=== PATIENT | female | born 1955 | race Caucasian/White ===

== ENCOUNTER 2021-06-29 16:44 | Inpatient (IN) | payer BC ==
[2021-06-29 17:45] LABS: #Basophils 0.1 thou/uL (0.0-0.2); #Eosinphils 0.2 thou/uL (0.0-0.7); #Lymphocytes 2.9 thou/uL (1.20-3.40); #Monocytes 0.5 thou/uL (0.11-0.59); #Neutrophils 4.8 thou/uL (1.40-6.50); %Basophils 0.8 % (0.0-1.0); %Eosinophils 1.9 % (0.0-10.0); %Lymphocytes 34.5 % (21.0-51.0); %Monocytes 5.5 % (0.0-10.0); %Neutrophils 57.3 % (42.0-75.0); Hemoglobin 14.6 g/dL (12.0-16.0); Mean Corpuscular HGB CONC 33.9 g/dL (32.0-36.0); Mean Corpuscular Hemoglobin 30.7 pg (27.0-31.0); Mean Corpuscular Volume 90.5 fL (78.0-98.0); Mean Platelet Volume 6.3 fL (7.4-10.4); Platelet Count 241 thou/uL (130-400); RBC Distribution Width 12.2 % (11.5-14.5); Red Blood Cell (RBC) Count 4.75 mill/uL (4.20-5.40); White Blood Cell (WBC) Count 8.3 thou/uL (4.8-10.8)
[2021-06-29 18:11] LABS: ALT (SGPT) 31 U/L (8-55); AST (SGOT) 28 U/L (5-34); Albumin 4.4 g/dL (3.4-4.8); Alkaline Phosphatase 96 U/L (40-110); Anion Gap 12 mmol/L (10-20); BUN (Urea Nitrogen) 14 mg/dL (9.8-20.1); Bilirubin, Total 0.4 mg/dL (0.2-1.2); Calc. Creatinine Clearance 0 mL/min (70-130); Calcium 9.7 mg/dL (7.8-10.44); Carbon Dioxide 28 mmol/L (23-31); Chloride 103 mmol/L (98-107); Globulin 3.4 g/dL (2.4-3.5); Glucose 128 mg/dL (80-115); Lipase 33 U/L (8-78); Magnesium 2.1 mg/dL (1.6-2.6); Potassium 4.4 mmol/L (3.5-5.1); Protein, Total 7.8 g/dL (5.8-8.1); Sodium 139 mmol/L (136-145)
[2021-06-29 18:32] LABS: CKMB 1.7 ng/mL (0-6.6)
[2021-06-29] MEDS ORDERED: Aspirin Chewable 81 MG TAB ONE (21:20)
[2021-06-29 21:34] LABS: Troponin I 0.215 ng/mL (< 0.028)
[2021-06-29] MEDS ORDERED: Acetaminophen 650 MG Suppository PR PRN (23:27)
[2021-06-29] MEDS ORDERED: Ondansetron ODT 4 MG TAB PO PRN (23:27)
[2021-06-29] MEDS ORDERED: Ondansetron PF 4 MG/2 ML Vial IVP PRN (23:27)
[2021-06-29] MEDS ORDERED: Acetaminophen 325 MG TAB PO PRN (23:27)
[2021-06-29] MEDS ORDERED: Nitroglycerin 0.4 MG TAB (25 Tab Bottle) SL PRN (23:34)
[2021-06-29] MEDS ORDERED: Morphine 4 MG/ML VIAL SLOW IVP PRN (23:35)
[2021-06-29] MEDS ORDERED: Enoxaparin Sodium 100 MG/ML SYRINGE SC SCH (23:59)
[2021-06-30 00:14] LABS: Troponin I 0.215 ng/mL (< 0.028)
[2021-06-30 01:44] VITALS: BMI 37.5
[2021-06-30 05:34] LABS: #Basophils 0.1 thou/uL (0.0-0.2); #Eosinphils 0.2 thou/uL (0.0-0.7); #Lymphocytes 3.5 thou/uL (1.20-3.40); #Monocytes 0.4 thou/uL (0.11-0.59); #Neutrophils 3.6 thou/uL (1.40-6.50); %Basophils 0.9 % (0.0-1.0); %Eosinophils 2.9 % (0.0-10.0); %Lymphocytes 45.1 % (21.0-51.0); %Monocytes 4.7 % (0.0-10.0); %Neutrophils 46.4 % (42.0-75.0); Hemoglobin 14.1 g/dL (12.0-16.0); Mean Corpuscular HGB CONC 33.5 g/dL (32.0-36.0); Mean Corpuscular Hemoglobin 30.7 pg (27.0-31.0); Mean Corpuscular Volume 91.7 fL (78.0-98.0); Mean Platelet Volume 6.6 fL (7.4-10.4); Platelet Count 232 thou/uL (130-400); RBC Distribution Width 12.2 % (11.5-14.5); White Blood Cell (WBC) Count 7.7 thou/uL (4.8-10.8)
[2021-06-30 05:49] LABS: Hemoglobin A1c 6.3 % (4.0-6.0)
[2021-06-30 05:52] LABS: Anion Gap 12 mmol/L (10-20); BUN (Urea Nitrogen) 13 mg/dL (9.8-20.1); Calc. Creatinine Clearance 116 mL/min (70-130); Calcium 9.5 mg/dL (7.8-10.44); Carbon Dioxide 28 mmol/L (23-31); Chloride 103 mmol/L (98-107); Glucose 112 mg/dL (80-115); Potassium 3.9 mmol/L (3.5-5.1); Sodium 139 mmol/L (136-145)
[2021-06-30] MEDS ORDERED: FLU VACC QS2021-22(6MOS UP)/PF 60 MCG/0.5 ML SYRINGE IM ONE (09:00)
[2021-06-30] MEDS ORDERED: Enoxaparin Sodium 40 MG/0.4 ML SYRINGE SC SCH (09:00)
[2021-06-30] MEDS ORDERED: Enoxaparin Sodium 100 MG/ML SYRINGE SC SCH ×2 (09:00→17:00)
[2021-06-30] MEDS ORDERED: Communication Order-Pharmacy FS SCH (09:30)
[2021-06-30 11:00] LABS: Cardiac Risk 6.4 (Less than 4.5)
[2021-06-30] MEDS ORDERED: Verapamil 5 MG/2 ML VIAL ONE (11:00)
[2021-06-30] MEDS ORDERED: Heparin 10,000 UNITS/ 10 ML VIAL ONE (11:00)
[2021-06-30] MEDS ORDERED: Lidocaine 1% (PF) 30 ML VIAL ONE (11:01)
[2021-06-30] MEDS ORDERED: Nitroglycerin 100MG/250ML BOT 250 ML ONE (11:01)
[2021-06-30] MEDS ORDERED: Heparin 25,000 units/D5W 0 ML ONE (11:06)
[2021-06-30] MEDS ORDERED: Norepinephrine 4 MG/4 ML VIAL ONE (11:06)
[2021-06-30] MEDS ORDERED: Midazolam HCl 2 mg/2 ml Vial ONE (12:00)
[2021-06-30] MEDS ORDERED: Fentanyl 100 MCG/2 ML VIAL ONE (12:00)
[2021-06-30] MEDS ORDERED: Iopamidol 370 76% 100 ML VIAL ONE (12:18)
[2021-06-30] MEDS ORDERED: Acetaminophen/Codeine 30-300mg Tablet PO PRN ×2 (13:30)
[2021-06-30] MEDS ORDERED: Sodium Chloride 0.9% 200 ML IV PRN (13:30)
[2021-06-30] MEDS ORDERED: Nitroglycerin 0.4 MG TAB (25 Tab Bottle) SL PRN (13:30)
[2021-06-30] MEDS ORDERED: Diazepam 5 MG TAB PO PRN (14:46)
[2021-06-30] MEDS ORDERED: Communication Order-Pharmacy FS PRN (14:46)
[2021-06-30 15:10] LABS: SARS-CoV-2 PCR by NAA Not Detected (NotDetected)
[2021-06-30] MEDS: Carvedilol 3.125 MG TAB PO SCH (17:35)
[2021-06-30] MEDS: Aspirin 81 mg Enteric Coated Tablet PO SCH (17:36)
[2021-06-30] MEDS: Atorvastatin Calcium 40 MG TAB PO SCH (20:56)
[2021-07-01] MEDS: Enoxaparin Sodium 100 MG/ML SYRINGE SC SCH ×2 (09:08→19:47)
[2021-07-01] MEDS: Aspirin 81 mg Enteric Coated Tablet PO SCH (09:09)
[2021-07-01] MEDS: Carvedilol 3.125 MG TAB PO SCH ×2 (09:09→18:26)
[2021-07-01] MEDS: Atorvastatin Calcium 40 MG TAB PO SCH (19:42)
[2021-07-02] MEDS: Carvedilol 3.125 MG TAB PO SCH (05:05)
[2021-07-02] MEDS ORDERED: Albumin 5% 500 ML ONE (06:24)
[2021-07-02] MEDS ORDERED: Bupivacaine PF 0.5% 30 ML VIAL ONE (06:24)
[2021-07-02] MEDS ORDERED: EPINEPHrine 1 MG/ML AMP ONE (06:24)
[2021-07-02] MEDS ORDERED: Dexamethasone 4 mg/ml Vial ONE (06:24)
[2021-07-02] MEDS ORDERED: ceFAZolin 2 GM/DEX 5% 100 ML BAG ONE (06:32)
[2021-07-02] MEDS ORDERED: Midazolam HCl 5 mg/5 ml Vial ONE (06:49)
[2021-07-02] MEDS ORDERED: Fentanyl 250 MCG/5 ML VIAL ONE (06:49)
[2021-07-02] MEDS ORDERED: Dexmedetomidine 200 MCG/2 ML VIAL ONE (06:49)
[2021-07-02] MEDS ORDERED: Heparin 10,000 UNITS/1 ML VIAL 30,000 UNITS in Sodium Chloride 0.9% 1,000 ML FS SCH (07:00)
[2021-07-02] MEDS ORDERED: PHENYLEPHRINE-NS 100 MCG/ML 10 ML SYRINGE ONE (07:11)
[2021-07-02] MEDS ORDERED: ceFAZolin 2 GM/Dextrose 50 ML 2 GM in Premix Bag 1 BAG IVPB SCH (07:30)
[2021-07-02] MEDS ORDERED: Aminocaproic Acid 5 GM/20 ML VIAL ONE (07:39)
[2021-07-02] MEDS ORDERED: Ondansetron PF 4 MG/2 ML Vial ONE (07:39)
[2021-07-02] MEDS ORDERED: Magnesium Sulfate 1 GM/2 ML VIAL ONE (07:39)
[2021-07-02] MEDS ORDERED: Cardioplegic Soln 1,000 ML BAG ONE (07:39)
[2021-07-02] MEDS ORDERED: Potassium Chloride 60 MEQ/30 ML VIAL ONE (07:39)
[2021-07-02] MEDS ORDERED: Vecuronium 10 MG VIAL ONE (07:39)
[2021-07-02] MEDS ORDERED: Lidocaine 2% PF 100 mg/5 ml Syringe ONE (07:39)
[2021-07-02] MEDS ORDERED: Glycopyrrolate 0.2 MG/ML 5 ML SYRINGE ONE (07:39)
[2021-07-02] MEDS ORDERED: Sodium Bicarb 50 MEQ/50 ML Abboject 8.4% SYRINGE ONE (07:39)
[2021-07-02] MEDS ORDERED: Norepinephrine 4 MG/4 ML VIAL ONE (07:39)
[2021-07-02] MEDS ORDERED: Papaverine 60 MG/2 ML VIAL ONE (07:39)
[2021-07-02] MEDS ORDERED: Ketorolac Tromethamine 30 MG/ML VIAL ONE (07:39)
[2021-07-02] MEDS ORDERED: Heparin 5,000 UNITS/ML VIAL ONE (07:39)
[2021-07-02] MEDS ORDERED: Lidocaine 1% PF 5 ML VIAL ONE (07:39)
[2021-07-02] MEDS ORDERED: Nitroglycerin 50 MG/250 ML BOT ONE (07:39)
[2021-07-02] MEDS ORDERED: Heparin 30,000 units/30 ml VIAL ONE (07:39)
[2021-07-02] MEDS ORDERED: PROPOFOL 200 MG/20 ML VIAL ONE (07:39)
[2021-07-02] MEDS ORDERED: Thrombin 5000 UNITS/5 ML VIAL ONE (07:39)
[2021-07-02] MEDS ORDERED: Dexamethasone 20 MG/5 ML VIAL ONE (07:39)
[2021-07-02] MEDS ORDERED: Calcium Chloride 1 GM/10 ML Abboject SYRINGE ONE (07:39)
[2021-07-02] MEDS ORDERED: ePHEDrine 50 MG/ML VIAL ONE (07:39)
[2021-07-02] MEDS ORDERED: Protamine Sulfate 250 MG/25 ML VIAL ONE (07:39)
[2021-07-02] MEDS ORDERED: Insulin Regular 300 UNITS/3 ML VIAL ONE (08:55)
[2021-07-02] MEDS ORDERED: Milrinone 10 MG/10 ML VIAL ONE ×2 (08:55→09:08)
[2021-07-02] MEDS ORDERED: traMADol HCl 50 MG TAB PO PRN ×2 (11:02)
[2021-07-02] MEDS ORDERED: Nitroglycerin 50 MG/250 ML BOT 250 ML IVPB PRN (11:02)
[2021-07-02] MEDS ORDERED: Ondansetron PF 4 MG/2 ML Vial IVP PRN (11:02)
[2021-07-02] MEDS ORDERED: Mag-Al 1200 mg/1200 mg/30 ML UDCUP PO PRN (11:02)
[2021-07-02] MEDS ORDERED: Phenylephrine 40 MG in Sodium Chloride 0.9% 250 ML 250 ML IVPB PRN ×2 (11:02→11:46)
[2021-07-02] MEDS ORDERED: Guaifenesin DM 100-10/5 ML UDCUP PO PRN (11:02)
[2021-07-02] MEDS ORDERED: Acetaminophen 325 MG TAB PO PRN (11:02)
[2021-07-02] MEDS ORDERED: Potassium Chloride 20 MEQ/100 ML PREMIX BAG IVPB PRN (11:02)
[2021-07-02] MEDS ORDERED: Morphine 2 MG/ML VIAL SLOW IVP PRN (11:02)
[2021-07-02] MEDS ORDERED: Bisacodyl 5 MG TAB PO PRN (11:02)
[2021-07-02] MEDS ORDERED: Fentanyl 100 MCG/2 ML VIAL SLOW IVP PRN ×2 (11:02)
[2021-07-02] MEDS ORDERED: D5 1/2 NS w/20 mEq KCL 1,000 ML IV SCH (11:02)
[2021-07-02] MEDS ORDERED: Magnesium 2 GM/50 ML 1 GM in Premix Bag 1 BAG IVPB SCH (11:02)
[2021-07-02] MEDS ORDERED: Bisacodyl 10 MG SUPP PR PRN (11:02)
[2021-07-02] MEDS ORDERED: Hetastarch 6% 500 ML 500 ML IVPB PRN (11:02)
[2021-07-02] MEDS ORDERED: niCARdipine 25 MG in Sodium Chloride 0.9% 250 ML 250 ML IVPB PRN (11:02)
[2021-07-02 11:09] LABS: #Eosinphils 0.1 thou/uL (0.0-0.7); #Lymphocytes 1.3 thou/uL (1.20-3.40); #Monocytes 0.5 thou/uL (0.11-0.59); #Neutrophils 9.8 thou/uL (1.40-6.50); %Basophils 0.1 % (0.0-1.0); %Eosinophils 0.9 % (0.0-10.0); %Lymphocytes 11.4 % (21.0-51.0); %Neutrophils 83.6 % (42.0-75.0); Hemoglobin 11.6 g/dL (12.0-16.0); Mean Corpuscular HGB CONC 33.2 g/dL (32.0-36.0); Mean Corpuscular Hemoglobin 30.7 pg (27.0-31.0); Mean Corpuscular Volume 92.4 fL (78.0-98.0); Mean Platelet Volume 6.3 fL (7.4-10.4); Platelet Count 159 thou/uL (130-400); RBC Distribution Width 12.1 % (11.5-14.5); Red Blood Cell (RBC) Count 3.79 mill/uL (4.20-5.40); White Blood Cell (WBC) Count 11.8 thou/uL (4.8-10.8)
[2021-07-02 11:13] LABS: Actual Bicarbonate (HCO3a) 25.5 mEq/L (22-28); Base Excess (BEa) -0.8 mEq/L (-2.0 to +3.0); CO2 Tension 49.2 mmHg (35.0-45.0); Calcium, Ionized (arterial) 1.11 mmol/L (1.12-1.30); Carboxyhemoglobin (COHb) 0.5 gm% (0.0-3.0); Hemoglobin (Hb) 12.3 g/dL (12.0-16.0); O2 Tension (PaO2), arterial 97.6 mmHg (> 80.0); Potassium - ABG Lab 3.98 mmol/L (3.70-5.30); pH, Arterial 7.33 (7.35-7.45)
[2021-07-02 11:14] LABS: Puncture Site Arterial Line
[2021-07-02] MEDS ORDERED: Dextrose 5% in Water 1,000 ML IV PRN (11:15)
[2021-07-02] MEDS ORDERED: Lantus 1000 UNITS/10 ML VIAL SC PRN (11:15)
[2021-07-02] MEDS ORDERED: Dextrose 50% Abboject 50 ML SYRINGE SLOW IVP PRN (11:15)
[2021-07-02] MEDS ORDERED: HUMULIN R 100 UNITS in Sodium Chloride 0.9% 100 ML IVPB SCH (11:15)
[2021-07-02 11:28] LABS: INR-International Normal Ratio 1.3; PTT 37.7 sec (22.9-36.1); Prothrombin Time 16.8 sec (12.0-14.7)
[2021-07-02 11:28] LABS: Anion Gap 10 mmol/L (10-20); BUN (Urea Nitrogen) 8 mg/dL (9.8-20.1); Calc. Creatinine Clearance 124 mL/min (70-130); Carbon Dioxide 23 mmol/L (23-31); Chloride 111 mmol/L (98-107); Glucose 154 mg/dL (80-115); Sodium 140 mmol/L (136-145)
[2021-07-02] MEDS: Insulin Regular 300 UNITS/3 ML VIAL SC PRN ×4 (11:38→23:59)
[2021-07-02] MEDS: Ketorolac Tromethamine 30 MG/ML VIAL IVP SCH ×2 (12:07→17:55)
[2021-07-02] MEDS: ceFAZolin Sodium/D5W 2 GM in Premix Bag 1 BAG IVPB SCH ×2 (14:07→21:00)
[2021-07-02 17:24] LABS: Potassium 4.8 mmol/L (3.5-5.1)
[2021-07-02] MEDS: Atorvastatin Calcium 40 MG TAB PO SCH (20:18)
[2021-07-02] MEDS ORDERED: Famotidine/PF 20 mg/2ml Vial SLOW IVP SCH (21:00)
[2021-07-03 04:22] LABS: #Lymphocytes 1.1 thou/uL (1.20-3.40); #Monocytes 0.5 thou/uL (0.11-0.59); #Neutrophils 7.8 thou/uL (1.40-6.50); %Eosinophils 0.1 % (0.0-10.0); %Lymphocytes 11.7 % (21.0-51.0); %Monocytes 5.2 % (0.0-10.0); Hemoglobin 10.3 g/dL (12.0-16.0); Mean Corpuscular HGB CONC 34.2 g/dL (32.0-36.0); Mean Corpuscular Hemoglobin 31.5 pg (27.0-31.0); Platelet Count 171 thou/uL (130-400); RBC Distribution Width 12.1 % (11.5-14.5); Red Blood Cell (RBC) Count 3.27 mill/uL (4.20-5.40); White Blood Cell (WBC) Count 9.4 thou/uL (4.8-10.8)
[2021-07-03] MEDS: Insulin Regular 300 UNITS/3 ML VIAL SC PRN (04:23)
[2021-07-03 04:35] LABS: Anion Gap 12 mmol/L (10-20); BUN (Urea Nitrogen) 8 mg/dL (9.8-20.1); Calc. Creatinine Clearance 123 mL/min (70-130); Calcium 8.2 mg/dL (7.8-10.44); Carbon Dioxide 23 mmol/L (23-31); Chloride 108 mmol/L (98-107); Glucose 129 mg/dL (80-115); Potassium 4.5 mmol/L (3.5-5.1); Sodium 138 mmol/L (136-145)
[2021-07-03] MEDS: Ketorolac Tromethamine 30 MG/ML VIAL IVP SCH ×5 (05:45→23:22)
[2021-07-03] MEDS: ceFAZolin Sodium/D5W 2 GM in Premix Bag 1 BAG IVPB SCH (05:46)
[2021-07-03] MEDS ORDERED: Nitroglycerin 0.4 MG TAB (25 Tab Bottle) SL PRN (06:39)
[2021-07-03] MEDS: Famotidine 20 MG TAB PO SCH ×2 (09:26→22:14)
[2021-07-03] MEDS: Aspirin 325 MG TAB PO SCH (09:26)
[2021-07-03] MEDS: Magnesium 2 GM/50 ML 1 GM in Premix Bag 1 BAG IVPB SCH (09:26)
[2021-07-03] MEDS: Polyethylene Glycol 3350 17 GM Packet PO SCH (09:27)
[2021-07-03] MEDS: Atorvastatin Calcium 40 MG TAB PO SCH (22:14)
[2021-07-03] MEDS: Melatonin 3 MG TAB PO PRN (22:14)
[2021-07-04] MEDS: Ketorolac Tromethamine 30 MG/ML VIAL IVP SCH ×3 (05:37→17:42)
[2021-07-04 05:39] LABS: #Eosinphils 0.1 thou/uL (0.0-0.7); #Lymphocytes 1.8 thou/uL (1.20-3.40); #Monocytes 0.6 thou/uL (0.11-0.59); #Neutrophils 6.5 thou/uL (1.40-6.50); %Basophils 0.3 % (0.0-1.0); %Eosinophils 1.3 % (0.0-10.0); %Neutrophils 71.4 % (42.0-75.0); Hemoglobin 10.2 g/dL (12.0-16.0); Mean Corpuscular HGB CONC 33.3 g/dL (32.0-36.0); Mean Corpuscular Hemoglobin 31.1 pg (27.0-31.0); Mean Corpuscular Volume 93.3 fL (78.0-98.0); Mean Platelet Volume 6.8 fL (7.4-10.4); Platelet Count 165 thou/uL (130-400); RBC Distribution Width 12.3 % (11.5-14.5); Red Blood Cell (RBC) Count 3.27 mill/uL (4.20-5.40); White Blood Cell (WBC) Count 9.1 thou/uL (4.8-10.8)
[2021-07-04 05:57] LABS: Anion Gap 11 mmol/L (10-20); BUN (Urea Nitrogen) 18 mg/dL (9.8-20.1); Calc. Creatinine Clearance 112 mL/min (70-130); Calcium 8.6 mg/dL (7.8-10.44); Carbon Dioxide 27 mmol/L (23-31); Chloride 105 mmol/L (98-107); Glucose 134 mg/dL (80-115); Potassium 4.1 mmol/L (3.5-5.1); Sodium 139 mmol/L (136-145)
[2021-07-04] MEDS: Magnesium 2 GM/50 ML 1 GM in Premix Bag 1 BAG IVPB SCH (09:22)
[2021-07-04] MEDS: Aspirin 325 MG TAB PO SCH (09:22)
[2021-07-04] MEDS: Famotidine 20 MG TAB PO SCH ×2 (09:22→20:28)
[2021-07-04] MEDS: Polyethylene Glycol 3350 17 GM Packet PO SCH (09:23)
[2021-07-04] MEDS: Carvedilol 3.125 MG TAB PO SCH ×2 (09:26→17:42)
[2021-07-04] MEDS: Melatonin 3 MG TAB PO PRN (20:28)
[2021-07-04] MEDS: Atorvastatin Calcium 40 MG TAB PO SCH (20:28)
[2021-07-05] MEDS: Ketorolac Tromethamine 30 MG/ML VIAL IVP SCH ×3 (01:01→12:15)
[2021-07-05] MEDS: Polyethylene Glycol 3350 17 GM Packet PO SCH (10:03)
[2021-07-05] MEDS: Aspirin 325 MG TAB PO SCH (10:03)
[2021-07-05] MEDS: Famotidine 20 MG TAB PO SCH (10:03)
[2021-07-05] MEDS: Carvedilol 3.125 MG TAB PO SCH (10:03)
[2021-07-05 14:26] VITALS: BP 120/59; TEMP 98.3
[2021-07-06 08:59] LABS: Actual Bicarbonate (HCO3a) 23.6 mEq/L (22-28); Analyzer IN Cardio OR; Base Excess (BEa) -1.9 mEq/L (-2.0 to +3.0); CO2 Tension 43.1 mmHg (35.0-45.0); Calcium, Ionized (arterial) 1.11 mmol/L (1.12-1.30); Hemoglobin (Hb) 12.7 g/dL (12.0-16.0); O2 Tension (PaO2), arterial 201.4 mmHg (> 80.0); Potassium - ABG Lab 4.28 mmol/L (3.70-5.30); pH, Arterial 7.36 (7.35-7.45)
[2021-07-06 08:59] LABS: Actual Bicarbonate (HCO3a) 25.8 mEq/L (22-28); Analyzer IN Cardio OR; Base Excess (BEa) -0.4 mEq/L (-2.0 to +3.0); CO2 Tension 48.9 mmHg (35.0-45.0); Calcium, Ionized (arterial) 1.12 mmol/L (1.12-1.30); Carboxyhemoglobin (COHb) 1.1 gm% (0.0-3.0); Hemoglobin (Hb) 13.6 g/dL (12.0-16.0); O2 Tension (PaO2), arterial 411.4 mmHg (> 80.0); Potassium - ABG Lab 3.84 mmol/L (3.70-5.30); pH, Arterial 7.34 (7.35-7.45)
[2021-07-06 09:00] LABS: Actual Bicarbonate (HCO3a) 26.3 mEq/L (22-28); Analyzer IN Cardio OR; Base Excess (BEa) 0.9 mEq/L (-2.0 to +3.0); CO2 Tension 45.3 mmHg (35.0-45.0); Calcium, Ionized (arterial) 0.98 mmol/L (1.12-1.30); Carboxyhemoglobin (COHb) 0.4 gm% (0.0-3.0); O2 Tension (PaO2), arterial 332.4 mmHg (> 80.0); Potassium - ABG Lab 4.44 mmol/L (3.70-5.30); pH, Arterial 7.38 (7.35-7.45)
[2021-07-06 09:00] LABS: Actual Bicarbonate (HCO3a) 26.6 mEq/L (22-28); Analyzer IN Cardio OR; Base Excess (BEa) 2.7 mEq/L (-2.0 to +3.0); CO2 Tension 38.3 mmHg (35.0-45.0); Calcium, Ionized (arterial) 0.87 mmol/L (1.12-1.30); Carboxyhemoglobin (COHb) 0.4 gm% (0.0-3.0); Hemoglobin (Hb) 9.6 g/dL (12.0-16.0); O2 Tension (PaO2), arterial 335.1 mmHg (> 80.0); Potassium - ABG Lab 4.38 mmol/L (3.70-5.30); pH, Arterial 7.46 (7.35-7.45)
[2021-07-06 09:01] LABS: Actual Bicarbonate (HCO3a) 24.8 mEq/L (22-28); Analyzer IN Cardio OR; Base Excess (BEa) 0.2 mEq/L (-2.0 to +3.0); CO2 Tension 39.9 mmHg (35.0-45.0); Calcium, Ionized (arterial) 1.13 mmol/L (1.12-1.30); Carboxyhemoglobin (COHb) 0.3 gm% (0.0-3.0); Hemoglobin (Hb) 10.3 g/dL (12.0-16.0); O2 Tension (PaO2), arterial 311.1 mmHg (> 80.0); Potassium - ABG Lab 4.27 mmol/L (3.70-5.30); pH, Arterial 7.41 (7.35-7.45)
[2021-07-06 09:01] LABS: Actual Bicarbonate (HCO3a) 24.6 mEq/L (22-28); Analyzer IN Cardio OR; Base Excess (BEa) -0.2 mEq/L (-2.0 to +3.0); CO2 Tension 40.5 mmHg (35.0-45.0); Calcium, Ionized (arterial) 1.13 mmol/L (1.12-1.30); Carboxyhemoglobin (COHb) 0.7 gm% (0.0-3.0); Hemoglobin (Hb) 11.8 g/dL (12.0-16.0); O2 Tension (PaO2), arterial 326.7 mmHg (> 80.0)
[2021-07-06 09:01] LABS: Puncture Site Arterial Line
[2021-07-06 09:02] LABS: Puncture Site Arterial Line
[2021-07-06 09:02] LABS: Puncture Site Arterial Line
[2021-07-06 09:03] LABS: Puncture Site Arterial Line
[2021-07-06 09:03] LABS: Puncture Site Arterial Line
[2021-07-06 09:04] LABS: Puncture Site Arterial Line
== END 2021-07-05 14:20 | disposition home or self-care (01) | DRG 234 ==
LOC: ERS 16:44 → NEURO 19:07 → OBSVTOIN 06-30 16:16 → CCU 07-02 09:56 → 2NO 07-03 08:28
PROVIDERS: ADMIT Internal Medicine; ATTEND Internal Medicine
PROC: 4A023N7 Measurement of Cardiac Sampling and Pressure, Left Heart, Percutaneous Approach (ICD-10-PCS; 2021-06-30)
PROC: B2111ZZ Fluoroscopy of Multiple Coronary Arteries using Low Osmolar Contrast (ICD-10-PCS; 2021-06-30)
PROC: B2151ZZ Fluoroscopy of Left Heart using Low Osmolar Contrast (ICD-10-PCS; 2021-06-30)
PROC: 021109W Bypass Coronary Artery, Two Arteries from Aorta with Autologous Venous Tissue, Open Approach (ICD-10-PCS; principal; 2021-07-02)
PROC: 02100Z9 Bypass Coronary Artery, One Artery from Left Internal Mammary, Open Approach (ICD-10-PCS; 2021-07-02)
PROC: 06BQ4ZZ Excision of Left Saphenous Vein, Percutaneous Endoscopic Approach (ICD-10-PCS; 2021-07-02)
PROC: 5A1221Z Performance of Cardiac Output, Continuous (ICD-10-PCS; 2021-07-02)
DX: I21.4 Non-ST elevation (NSTEMI) myocardial infarction (principal); I25.10 Atherosclerotic heart disease of native coronary artery without angina pectoris; Z20.822 Contact with and (suspected) exposure to COVID-19; Z23 Encounter for immunization; I10 Essential (primary) hypertension; E78.5 Hyperlipidemia, unspecified; E78.00 Pure hypercholesterolemia, unspecified; I44.7 Left bundle-branch block, unspecified; E66.9 Obesity, unspecified; Z68.38 Body mass index [BMI] 38.0-38.9, adult; Z90.89 Acquired absence of other organs; Z78.1 Physical restraint status; Z87.891 Personal history of nicotine dependence
CPT/HCPCS: 36415; 36416; 36430; 71045; 80048; 80053; 80061; 82553; 82805; 83036; 83690; 83735; 84484; 85025; 85610; 85730; 86850; 86900; 86901; 90471; 90686; 90732; 93005; 93010; 93458; 93798; 94002; 94150; 94640; 94760; 96372; 97139; 99152; 99153; C1776; G0008; G0009; G0378; J0171; J1100; J1642; J1644; J1650; J1815; J1885; J2001; J2250; J2260; J2370; J2405; J2440; J2704; J2720; J3010; J3370; J3475; J3480; J3490; J7050; J7620; P9045; Q9967; S0017; S0020; S0028; U0003; U0005

== ENCOUNTER 2021-07-13 10:58 | Outpatient (CLI) | payer BC | END 2021-07-13 10:59 | disposition home or self-care (01) | LOC: BICRAD 10:58 | PROVIDERS: ATTEND Physician Assistant | DX: R05.9 Cough, unspecified (principal); I51.7 Cardiomegaly; J90 Pleural effusion, not elsewhere classified; J81.1 Chronic pulmonary edema; Z98.890 Other specified postprocedural states | CPT/HCPCS: 71046 ==

== ENCOUNTER 2021-08-13 12:49 | Outpatient (CLI) | payer BC | END 2021-08-13 12:50 | disposition home or self-care (01) | LOC: BICMAMMO 12:49 | PROVIDERS: ATTEND Physician Assistant | DX: Z13.820 Encounter for screening for osteoporosis (principal) | CPT/HCPCS: 77080 ==

== ENCOUNTER 2022-02-25 08:09 | Outpatient (CLI) | payer BC | END 2022-02-25 08:10 | disposition home or self-care (01) | LOC: CTENTCT 08:09 → RAD 08:10 | PROVIDERS: ATTEND Nurse Practitioner Family | DX: R06.02 Shortness of breath (principal) | CPT/HCPCS: 71046 ==

== ENCOUNTER 2022-05-11 15:21 | Outpatient (CLI) | payer BC | END 2022-05-11 15:22 | disposition home or self-care (01) | LOC: BICMAMMO 15:21 | PROVIDERS: ATTEND Physician Assistant | DX: Z12.31 Encounter for screening mammogram for malignant neoplasm of breast (principal) | CPT/HCPCS: 77063; 77067 ==

== ENCOUNTER 2022-10-21 15:17 | Emergency (ER) | payer BC ==
[2022-10-21 16:17] LABS: #Lymphocytes 1.1 thou/uL (1.20-3.40); #Monocytes 0.2 thou/uL (0.11-0.59); #Neutrophils 8.4 thou/uL (1.40-6.50); %Basophils 0.4 % (0.0-1.0); %Eosinophils 0.4 % (0.0-10.0); %Lymphocytes 10.8 % (21.0-51.0); %Monocytes 2.4 % (0.0-10.0); Hemoglobin 12.8 g/dL (12.0-16.0); Mean Corpuscular HGB CONC 33.9 g/dL (32.0-36.0); Mean Corpuscular Hemoglobin 30.6 pg (27.0-31.0); Mean Corpuscular Volume 90.4 fl (78.0-98.0); Mean Platelet Volume 6.7 fL (7.4-10.4); Platelet Count 249 10x3/uL (130-400); RBC Distribution Width 12.1 % (11.5-14.5); Red Blood Cell (RBC) Count 4.18 mill/uL (4.20-5.40); White Blood Cell (WBC) Count 9.7 10x3/uL (4.8-10.8)
[2022-10-21 16:27] LABS: Hemoglobin A1c 7.9 % (4.0-6.0)
[2022-10-21 16:37] LABS: Magnesium 1.9 mg/dL (1.6-2.6)
[2022-10-21 16:39] LABS: ALT (SGPT) 17 U/L (8-55); AST (SGOT) 17 U/L (5-34); Albumin 4.1 g/dL (3.4-4.8); Alkaline Phosphatase 118 U/L (40-110); Anion Gap 19 mmol/L (10-20); BUN (Urea Nitrogen) 17 mg/dL (9.8-20.1); Bilirubin, Total 0.4 mg/dL (0.2-1.2); Calc. Creatinine Clearance 0 mL/min (70-130); Calcium 9.4 mg/dL (7.8-10.44); Carbon Dioxide 23 mmol/L (23-31); Chloride 100 mmol/L (98-107); Estimated GFR 65; Globulin 3.5 g/dL (2.4-3.5); Phosphorus 3.7 mg/dL (2.3-4.7); Potassium 3.6 mmol/L (3.5-5.1); Protein, Total 7.6 g/dL (5.8-8.1); Sodium 138 mmol/L (136-145)
[2022-10-21 16:45] LABS: Glucose 415 mg/dL (80-115)
[2022-10-21] MEDS ORDERED: Insulin Regular 300 UNITS/3 ML VIAL ONE (16:48)
[2022-10-21 17:31] LABS: Bacteria/HPF None Seen HPF (None Seen); Bilirubin Negative (Negative); Blood, Urine Trace (Negative); Clarity Clear (Clear); Glucose, Urine (Dipstick) Greater than 1000 mg/dL (Negative); Ketone, Urine Negative (Negative); Leukocyte Negative Leu/uL (Negative); Nitrite Negative (Negative); Protein, Urine (Dipstick) Negative (Neg-Trace); RBC/HPF 0-3 HPF (0-3); Specific Gravity, Urine 1.027 (1.002-1.036); Squamous Epithelial None Seen HPF (0-3); Urobilinogen Normal mg/dL (Less than 2); WBC/HPF 0-3 HPF (0-3)
== END 2022-10-21 18:46 | disposition home or self-care (01) ==
LOC: ERS 15:17
DX: E11.65 Type 2 diabetes mellitus with hyperglycemia (principal); I10 Essential (primary) hypertension; E78.00 Pure hypercholesterolemia, unspecified; Z79.82 Long term (current) use of aspirin
CPT/HCPCS: 36415; 36416; 71045; 80053; 81003; 81015; 83036; 83735; 84100; 84484; 85025; 93005; J1815

== ENCOUNTER 2022-12-09 08:06 | Outpatient (CLI) | payer BC | END 2022-12-09 08:07 | disposition home or self-care (01) | LOC: BICRAD 08:06 | PROVIDERS: ATTEND Physician Assistant | DX: M54.50 Low back pain, unspecified (principal); M47.816 Spondylosis without myelopathy or radiculopathy, lumbar region | CPT/HCPCS: 72100 ==